=== PATIENT | female | born 1945 ===

== ENCOUNTER → 2025-04-08 21:31 | Outpatient (ROUT) | payer SELFPAY ==
[2025-04-08 21:40] LABS: Appearance Urine UA SL CLOUDY; Bilirubin Urine UA NEGATIVE (NEGATIVE); Color Urine UA YELLOW; Glucose Urine UA NEGATIVE (Negative); Ketones Urine UA NEGATIVE (NEGATIVE); Leukocyte Esterase Urine UA 2+ (NEGATIVE); Nitrite Urine UA POSITIVE (Negative); Occult Blood Urine UA 1+ (Negative); Protein Urine UA 2+ (Negative); Specific Gravity Urine UA 1.020 (1.000-1.035); Urobilinogen Urine UA 0.2 E.U./dL (0.2); pH Urine UA 5.5 (4.5-8.0)
[2025-04-08 21:46] LABS: Culture Indicated Urine Specimen Cultured
== END ==
PROVIDERS: Registered Nurse
DX: Z22.350 Carrier of carbapenem-resistant Enterobacterales (principal)
CPT/HCPCS: 81001; 87077; 87086; 87186